=== PATIENT | male | born 1980 | race Caucasian/White ===

== ENCOUNTER → 2016-12-31 | Outpatient (REF) | payer BC ==
[2016-12-31 09:53] LABS: IMMMOTILE SPERM CENTRIFUGED ABSENT (ABSENT); IMMOTILE SPERM ABSENT (ABSENT); MOTILE SPERM ABSENT (ABSENT); MOTILE SPERM CENTRIFUGED ABSENT (ABSENT)
== END ==
LOC: M SMT 09:12
PROVIDERS: ATTEND Urology
DX: Z30.2 Encounter for sterilization (principal)